=== PATIENT | male | born 1975 | race American Indian/Alaskan Native ===

== ENCOUNTER 2021-06-12 17:52 | Emergency (ER) | payer MEDICARE ==
--- NOTE | 2021-06-13 02:01 | Emergency Department Report ---
ED Rash HPI - HPI Chief Complaint: Medical Clearance Stated Complaint: MY HAVE STAPH INFECTION Time Seen by Provider: 06/13/21 01:55 Duration: 3 Days Location: Head Suspected Cause: Other (resident at [facility] dx'd with staph) Severity: mild Other History: Chief complaint: "The agency nurse wants him tested for Staph.". HPI: This is a 46-year-old male with history of cognitive delay, diabetes mellitus, hypertension with possible staph infection. Another resident of [facility], [place] was tested positive for staph infection. Patient had erythematous rash on his face. He denies any other concerns. ED Review of Systems ROS: Stated complaint: MY HAVE STAPH INFECTION Other details as noted in HPI Constitutional: denies: fever Respiratory: denies: cough, shortness of breath Cardiovascular: denies: chest pain Skin: rash ED Past Medical Hx - Past Medical History Previous Medical History?: Yes Hx Hypertension: Yes Hx Diabetes: Yes Hx Psychiatric Treatment: Yes (developmental delayed, intellectual disability) - Surgical History Past Surgical History?: Yes Additional Surgical History: leg surgery - Social History Smoking Status: Never Smoker Substance Use Type: None - Medications Home Medications: Home Medications Medication Instructions Recorded Confirmed Last Taken Type Sulfamethoxazole/Trimethoprim 1 each PO BID 7 Days #14 tablet 06/13/21 Unknown Rx [Bactrim DS TAB] Rash Exam - Exam General: Vital signs noted. No distress. Alert and acting appropriately. HEENT: No Periorbital Edema, No Conjuctival Injection, No Chemosis, No Perioral Edema, No Tongue Edema, No Uvular Edema, No Compromised Airway, No Drooling Lungs: No Wheezes, No Ronchi, No Stridor, No Cough Skin: Yes Erythema (Erythematous rash forehead nose with pustule right cheek) ED Course Vital Signs 06/12/21 23:21 Temperature 97.9 F Pulse Rate 82 Respiratory 18 Rate Blood Pressure 157/112 O2 Sat by Pulse 98 Oximetry ED Medical Decision Making - Medical Decision Making Facial cellulitis: Prescribed Bactrim discharged to PCP Critical care attestation.: If time is entered above; I have spent that time in minutes in the direct care of this critically ill patient, excluding procedure time. ED Disposition Clinical Impression: Facial cellulitis Disposition: HOME / SELF CARE / HOMELESS Is pt being admited?: No Does the pt Need Aspirin: No Condition: Stable Instructions: Cellulitis, Adult, [id number] Prescriptions: Sulfamethoxazole/Trimethoprim [Bactrim DS TAB] 1 each PO BID 7 Days #14 tablet Referrals: BENJAMIN FANG MD [Primary Care Provider] - 3-5 Days
[2021-06-13 03:00] VITALS: BP 143/104
== END 2021-06-13 02:00 | disposition home or self-care (01) ==
LOC: ED 17:52
DX: L03.211 Cellulitis of face (principal); I10 Essential (primary) hypertension; E11.8 Type 2 diabetes mellitus with unspecified complications; R62.50 Unspecified lack of expected normal physiological development in childhood; F79 Unspecified intellectual disabilities; Z98.890 Other specified postprocedural states
CPT/HCPCS: 99282